=== PATIENT | male | born 1970 | race Hispanic/Latino ===

== ENCOUNTER 2020-03-31 15:15 | Emergency (ER) | payer MEDICARE ==
[2020-03-31 15:25] VITALS: BP 146/109
[2020-03-31] MEDS ORDERED: HYDROcodone/ACETAMINOPHEN 5-325 MG TAB PO STA (18:30)
--- NOTE | 2020-03-31 18:40 | Emergency Department Report ---
ED General Adult HPI - General Chief complaint: Extremity Problem,Nontraumatic Stated complaint: INJURY ON LEFT Time Seen by Provider: 03/31/20 18:25 Source: patient Mode of arrival: Ambulatory Limitations: No Limitations - History of Present Illness Initial comments: 49-year-old male that emerge department complaining of a pain to the toe following a toenail removal less than 24 hours ago. States he was seen here by provider and had a partial toenail removal and was discharged with antibiotic states that since that time is been some dull throbbing pain not improved with Tylenol and Motrin presents emergency department seeking pain medication for the toe. He reports no fever chills or sweats Improves with: none Worsens with: movement Associated Symptoms: denies other symptoms Treatments Prior to Arrival: none - Related Data Previous Rx's Medication Instructions Recorded Last Taken Type Acetaminophen/Codeine [Tylenol 1 tab PO Q6H PRN #10 tab 03/31/20 Unknown Rx /Codeine # 3 tab] Allergies Allergy/AdvReac Type Severity Reaction Status Date / Time ketorolac [From Toradol] Allergy Rash Verified 03/31/20 15:23 Penicillins Allergy Anaphylaxis Verified 03/31/20 15:22 quetiapine [From Seroquel] Allergy Hives Verified 03/31/20 15:23 tramadol [From Ultram] Allergy Hives Verified 03/31/20 15:23 doxycycline AdvReac Vomiting Verified 03/31/20 15:22 ED Review of Systems ROS: Stated complaint: INJURY ON LEFT Other details as noted in HPI Comment: All other systems reviewed and negative ED Past Medical Hx - Past Medical History Previous Medical History?: Yes Hx Hypertension: Yes Hx Renal Disease: Yes Additional medical history: A fib - Surgical History Additional Surgical History: Toenail to left great toe removed. - Social History Smoking Status: Never Smoker Substance Use Type: None - Medications Home Medications: Home Medications Medication Instructions Recorded Confirmed Last Taken Type Acetaminophen/Codeine [Tylenol 1 tab PO Q6H PRN #10 tab 03/31/20 Unknown Rx /Codeine # 3 tab] ED Physical Exam - General Limitations: No Limitations General appearance: alert, in no apparent distress - Head Head exam: Present: atraumatic, normocephalic - Eye Eye exam: Present: normal appearance, PERRL, EOMI Pupils: Present: normal accommodation - ENT ENT exam: Present: normal exam, normal orophraynx, mucous membranes moist, TM's normal bilaterally - Neck Neck exam: Present: normal inspection, full ROM - Respiratory Respiratory exam: Present: normal lung sounds bilaterally. Absent: respiratory distress, wheezes, rales, chest wall tenderness, accessory muscle use - Cardiovascular Cardiovascular Exam: Present: regular rate, normal rhythm, normal heart sounds - Extremities Exam Extremities exam: Present: tenderness, normal capillary refill, other (Mild bruising to the hallux region no cellulitis or lymphangitis noted). Absent: joint swelling, calf tenderness - Neurological Exam Neurological exam: Present: CN II-XII intact - Psychiatric Psychiatric exam: Present: normal affect, normal mood. Absent: anxious, flat affect ED Course Vital Signs 03/31/20 15:24 Temperature 97.9 F Pulse Rate 100 H Respiratory 16 Rate Blood Pressure 146/109 [Right] O2 Sat by Pulse 96 Oximetry ED Medical Decision Making - Medical Decision Making Status post toenail removal on from the hallux no evidence of any infection at present advised that wound recheck in 24 to 48 hours. Some mild bruising is noted. And the dressings in place which is been advised to change and clean with antibiotic soap and and water as previously directed Critical care attestation.: If time is entered above; I have spent that time in minutes in the direct care of this critically ill patient, excluding procedure time. ED Disposition Clinical Impression: Toe pain Disposition: DC-01 TO HOME OR SELFCARE Is pt being admited?: No Does the pt Need Aspirin: No Condition: Stable Prescriptions: Acetaminophen/Codeine [Tylenol /Codeine # 3 tab] 1 tab PO Q6H PRN #10 tab PRN Reason: pain Referrals: PRIMARY CARE, [Primary Care Provider] - 3-5 Days
== END 2020-03-31 18:49 | disposition home or self-care (01) ==
LOC: ED 15:15
DX: M79.675 Pain in left toe(s) (principal); I10 Essential (primary) hypertension; Z98.890 Other specified postprocedural states; Z79.899 Other long term (current) drug therapy; Z88.0 Allergy status to penicillin; Z88.8 Allergy status to other drugs, medicaments and biological substances
CPT/HCPCS: 99282